=== PATIENT | male | born 1950 | race Caucasian/White ===

== ENCOUNTER → 2016-06-10 | Outpatient (CLI) | payer MEDICARE | END | disposition home or self-care (01) | LOC: GMAJ 10:22 | PROVIDERS: ATTEND Family Medicine | DX: Z12.5 Encounter for screening for malignant neoplasm of prostate (principal) ==

== ENCOUNTER → 2016-08-20 | Outpatient (CLI) | payer MEDICARE, OTHER | END | disposition home or self-care (01) | LOC: YCFC.O 08-19 09:52 | PROVIDERS: ATTEND Anesthesiology Pain Medicine | DX: Z79.891 Long term (current) use of opiate analgesic (principal) ==

== ENCOUNTER 2016-09-16 05:36 | Day surgery (SDC) | payer MEDICARE, OTHER ==
[2016-09-16] MEDS ORDERED: LIDOCAINE 1% MPF 5 ML VIAL ONE (10:10)
[2016-09-16] MEDS ORDERED: methylPREDNISolone ACETATE 80 MG/ML VIAL ONE (10:10)
[2016-09-16] MEDS ORDERED: SODIUM BICARBONATE VIAL 50 MEQ/50 ML VIAL ONE (10:10)
[2016-09-16] MEDS ORDERED: SODIUM CHLORIDE 0.9% 10 ML VIAL ONE (10:10)
[2016-09-16 12:48] VITALS: TEMP 96.7
[2016-09-16 13:18] VITALS: BP 121/79; O2SAT 96
== END 2016-09-16 13:00 | disposition home or self-care (01) ==
LOC: AMB 05:36
PROVIDERS: ATTEND Anesthesiology Pain Medicine
DX: M48.06 Spinal stenosis, lumbar region (principal); M51.16 Intervertebral disc disorders with radiculopathy, lumbar region; Z79.82 Long term (current) use of aspirin; Z79.899 Other long term (current) drug therapy; Z79.4 Long term (current) use of insulin; J44.9 Chronic obstructive pulmonary disease, unspecified; I25.10 Atherosclerotic heart disease of native coronary artery without angina pectoris; F41.8 Other specified anxiety disorders; E11.9 Type 2 diabetes mellitus without complications; E78.00 Pure hypercholesterolemia, unspecified; I10 Essential (primary) hypertension; Z87.891 Personal history of nicotine dependence
CPT/HCPCS: 62323; 76000; J1030

== ENCOUNTER 2016-10-07 11:51 | Day surgery (SDC) | payer MEDICARE, OTHER ==
[2016-10-07] MEDS ORDERED: SODIUM CHLORIDE 0.9% 10 ML VIAL ONE (12:27)
[2016-10-07] MEDS ORDERED: methylPREDNISolone ACETATE 80 MG/ML VIAL ONE (12:27)
[2016-10-07 12:48] VITALS: O2SAT 95
[2016-10-07] MEDS: LIDOCAINE 1% MPF 5 ML VIAL ONE ×2 (14:00→14:01)
[2016-10-07 14:18] VITALS: BP 161/91; TEMP 98
== END 2016-10-07 14:15 | disposition home or self-care (01) ==
LOC: AMB 11:51
PROVIDERS: ATTEND Anesthesiology Pain Medicine
DX: M48.06 Spinal stenosis, lumbar region (principal); M51.37 Other intervertebral disc degeneration, lumbosacral region; M15.9 Polyosteoarthritis, unspecified; F41.8 Other specified anxiety disorders; J44.9 Chronic obstructive pulmonary disease, unspecified; I25.10 Atherosclerotic heart disease of native coronary artery without angina pectoris; E11.9 Type 2 diabetes mellitus without complications; M79.1 Myalgia; E78.00 Pure hypercholesterolemia, unspecified; I10 Essential (primary) hypertension; Z87.891 Personal history of nicotine dependence; Z79.82 Long term (current) use of aspirin; Z79.01 Long term (current) use of anticoagulants; Z79.4 Long term (current) use of insulin; Z79.899 Other long term (current) drug therapy
CPT/HCPCS: 62323; J1030

== ENCOUNTER → 2017-01-07 | Outpatient (CLI) | payer MEDICARE, OTHER | END | disposition home or self-care (01) | LOC: YCFC.O 13:39 | PROVIDERS: ATTEND Anesthesiology Pain Medicine | DX: Z79.891 Long term (current) use of opiate analgesic (principal) ==